=== PATIENT | female | born 2000 | race Hispanic/Latino ===

== ENCOUNTER 2022-10-30 18:51 | Emergency (ER) | payer OTHER ==
[2022-10-30] MEDS ORDERED: Bacitracin 1 PK ONE (20:50)
== END 2022-10-30 20:59 | disposition home or self-care (01) ==
LOC: ERS 18:51
DX: S60.511A Abrasion of right hand, initial encounter (principal); M25.511 Pain in right shoulder; V28.39XA Person boarding or alighting other motorcycle injured in noncollision transport accident, initial encounter